=== PATIENT | male | born 1995 | race Caucasian/White ===

== ENCOUNTER 2022-05-06 19:38 | Emergency (ER) | payer OTHER, SELFPAY ==
--- NOTE | ~2022-05-06 | XR_ITS ---
EXAMINATION: XR LUMBOSACRAL SPINE CLINICAL INFORMATION: Back pain COMPARISON: None TECHNIQUE: Three views of the lumbosacral spine. FINDINGS: The vertebral bodies and posterior elements are normal. The disc spaces are preserved and the vertebral alignment is normal. The paraspinal soft tissues are normal. XR/XR lumbar spine 2-3V IMPRESSION: Unremarkable examination.
[2022-05-06 19:59] VITALS: BP 120/64; PULSE 73; RESP 18; TEMP 36.3; O2SAT 98; BMI 22.3
--- NOTE | 2022-05-06 20:07 | ED.GENADULT ---
HPI - General Adult General Chief complaint: Back Pain/Injury Stated complaint: back/ leg pain Time Seen by Provider: 05/06/22 21:42 Related Data Previous Rx's Medication Instructions Recorded cyclobenzaprine 10 mg tablet 10 mg PO TID PRN pain #14 tabs 05/06/22 ibuprofen 400 mg tablet 400 mg PO Q6H PRN pain #20 tabs 05/06/22 Allergies Allergy/AdvReac Type Severity Reaction Status Date / Time No Known Allergies Allergy Verified 05/06/22 20:06 [facility] Social History Social History Advance Directives: No Advance Directives Information Provided: No Physical Exam ED Vital Signs: BMI result Body Mass Index 22.3 Course Course Course Narrative: RME: lower back pain radiating down right leg pain. patient denies any trauma. patient denies any urinary/bowel incontinence. patient has normal gait. Lumbar xray ordered Discharge Plan Discharge Clinical Impression: Sciatica Patient Disposition: Home, Self-Care Instructions: Sciatica (ED) Prescriptions: New cyclobenzaprine 10 mg tablet 10 mg PO TID PRN (Reason: pain) Qty: 14 0RF ibuprofen 400 mg tablet 400 mg PO Q6H PRN (Reason: pain) Qty: 20 0RF Referrals: [facility] [Provider Group] - 05/08/22 Stand Alone Forms: Work/School Release Interventions: ED Discharge Assessment Last Done: 05/06/22 22:22 Discharge Date/Time: 05/06/22 22:27 Print Language: Hong [place]er
--- NOTE | 2022-05-06 21:51 | PC.NURSE ---
pt unsure as to sourse of back pain lower back pain radiates down to R leg
--- NOTE | 2022-05-06 21:53 | PC.NURSE ---
pt states he can barely put weight on R leg; weakness on R leg
--- NOTE | 2022-05-06 21:56 | PC.NURSE ---
pt states back pain began 3 wks ago and has gotten progressively worse over time and now is affecting his gait in his R leg
--- NOTE | 2022-05-06 22:05 | ED_ITS ---
HPI - Back Pain/Injury General Chief Complaint: Back Pain/Injury Stated Complaint: back/ leg pain Time Seen by Provider: 05/06/22 21:42 History of Present Illness HPI Narrative: Patient is a 26-year-old male with a history of back pain. It has been ongoing for more than a month. Patient has pain radiating down the right leg. Feels a tingling sensation down the leg to the calf area. Patient denies any bowel urinary incontinence. Able to ambulate without any difficulties. Been seen by a chiropractor continued to have similar symptoms patient came to the emergency department. No fever no chills no history of IV drug use in the past. Related Data Previous Rx's Medication Instructions Recorded cyclobenzaprine 10 mg tablet 10 mg PO TID PRN pain #14 tabs 05/06/22 ibuprofen 400 mg tablet 400 mg PO Q6H PRN pain #20 tabs 05/06/22 Allergies Allergy/AdvReac Type Severity Reaction Status Date / Time No Known Allergies Allergy Verified 05/06/22 20:06 Review of Systems Review of Systems: Back pain radiating down the leg Yes all other systems are reviewed and are negative [facility] Past Medical History Attestation statement: The following information was validated with the patient. Social History Social History Advance Directives: No Advance Directives Information Provided: No Physical Exam Vital Signs: Vital Signs: Last Vital Signs Temp 97.3 F 05/06/22 19:59 Pulse 73 05/06/22 19:59 Resp 18 05/06/22 19:59 BP 120/64 05/06/22 19:59 Pulse Ox 98 05/06/22 19:59 O2 Del Method 05/06/22 19:59 BMI result Body Mass Index 22.3 Appearance: Alert. Oriented X3. No acute distress. Eyes: Pupils equal, round and reactive to light. ENT: Pharynx normal. Neck: Normal inspection. Neck supple. No lymph nodes noted. No crepitus CVS: Normal heart rate and rhythm. Pulses normal. Normal S1 and S2 Respiratory: No respiratory distress. Breath sounds normal. No Wheezing. No rales Abdomen: Soft and nontender. No rigidity. No distention. good BS x4 Skin: Skin warm and dry. Normal skin color. Normal skin turgor. Extremities: No lower extremity edema. Neurovascular intact to all extremities. No Lacerations. No Rash. Neuro: Oriented X 3. No motor deficit. No sensory deficit. Moving all extermities. No slurred speech. Good sensation in bilateral lower extremity. Reflex 2+ at the patella bilaterally. Ambulates with a normal gait. Good strength in bilateral lower extremity able lift up both leg against gravity. No weakness on plantar flexion and dorsiflexion bilaterally. Medical Decision Making Medical Decision Making [facility] Narrative: Patient well appearing. Has pain radiating down to legs some numbness down the right leg as well. There is no bowel urinary incontinence. There is no focal weakness. Question symptoms secondary to sciatica. Unlikely to have quarter greer syndrome. Patient has no history of IV drug use. No point tenderness in the spine on exam. Unlikely to have spinal abscess. Pain is chronic for over a month. Will give Motrin and muscle relaxant. Have patient follow-up on an outp atient basis. In stable condition.. Differential Diagnosis Sciatica, spinal abscess, quarter coronary syndrome, fracture Lab Data [facility] Lab Attestation statement: I reviewed the patient's lab results. Radiology Impression Discussion of test interpretation with radiology: I have reviewed the radiologist's reading. Prescription Management I considered prescription management with: Pain Medication Social Determinants Patient?s care significantly limited by Social Determinants of Health including: Other Social Determinant of Health Discharge Plan Discharge Clinical Impression: Sciatica Patient Disposition: Home, Self-Care Instructions: Sciatica (ED) Prescriptions: New cyclobenzaprine 10 mg tablet 10 mg PO TID PRN (Reason: pain) Qty: 14 0RF ibuprofen 400 mg tablet 400 mg PO Q6H PRN (Reason: pain) Qty: 20 0RF Referrals: [facility] [Provider Group] - 05/08/22 Print Language: Croatian
--- NOTE | 2022-05-06 22:29 | PC.NURSE ---
discharge instructions given/explained to parents, steady gait, no apparent distress, all questions answered
== END 2022-05-06 22:27 | disposition home or self-care (01) ==
PROVIDERS: Emergency Provider Emergency Medicine Emergency Medical Services
DX: M54.41 Lumbago with sciatica, right side (principal)
CPT/HCPCS: 72100; 99283; 99284